=== PATIENT | female | born 1960 | race American Indian/Alaskan Native ===

== ENCOUNTER 2018-03-22 11:38 | Day surgery (SDC) | payer OTHER ==
[2018-03-22] MEDS ORDERED: WATER FOR IRRIG STERILE IR ONE (16:42)
[2018-03-22] MEDS ORDERED: XYLOCAINE MPF 2% ONE (17:00)
[2018-03-22] MEDS ORDERED: NACL 0.9% 1000 ML 1,000 ML ONE (17:13)
[2018-03-22] MEDS ORDERED: NACL 0.9% 1000 ML 1,000 ML IV SCH (19:00)
[2018-03-22] MEDS ORDERED: DIPRIVAN 10 MG/ML IV ONE ×2 (20:14→20:49)
--- NOTE | 2018-03-22 20:39 | Anesthesia Consultation ---
Anesthesia Consult and Med Hx Date of service: 03/22/18 - Airway Anesthetic Teeth Evaluation: Good ROM Head & Neck: Adequate Mental/Hyoid Distance: Adequate Mallampati Class: Class II Intubation Access Assessment: Probably Good - Pulmonary Exam CTA: Yes - Cardiac Exam Cardiac Exam: RRR - Pre-Operative Health Status ASA Pre-Surgery Classification: ASA2 Proposed Anesthetic Plan: MAC - Pulmonary Hx Smoking: No - Cardiovascular System Hx Hypertension: Yes
--- NOTE | 2018-03-22 20:40 | Anesthesia Day of Surgery ---
Anesthesia Day of Surgery - Day of Surgery Patient Examined: Yes Patient H&P Reviewed: Yes Patient is NPO: Yes
--- NOTE | 2018-03-22 21:35 | Operative Report ---
Operative Report Operative Report: Date of procedure: 03/22/2018 Procedure: Colonoscopy with Multiple Biopsies. Attending physician: Homero Hutchins MD Radiation Control Specialist: Homero Hutchins MD Indication: Patient is a 58-year-old female who presents for screening colonoscopy. She also has had occasional anorectal itching and discomfort. This colonoscopy serves to evaluate patient so that treatment may be directed based on the findings. Consent: Informed consent was obtained after advising the patient and family regarding nature of this procedure, its indications, potential benefits as well as possible complications including but not limited to bleeding perforation and adverse reaction to medication, infection as well as other cardiopulmonary complications. An informed written and verbal consent was then obtained after due opportunity was provided for questions and answers. Monitoring: Patient was monitored continuously with pulse oximetry and electrocardiographic recordings as well as blood pressure recordings. Vital signs remained stable throughout this procedure with no untoward events. Preoperative assessment: Patient was assessed immediately prior to this procedure for capacity to tolerate monitored anesthesia care and moderate sedation as well as general anesthesia. Patient's ASA classification is 2, Mallampati class is 2, Hyomental distance is 3. Instrument: [employer] video colonoscope Medications: Propofol given intravenously in divided doses. For details please refer to anesthesia records. Description of procedure: Patient was placed in the left lateral decubitus position after achieving sedation, a digital rectal examination was performed following which the colonoscope was introduced into the anal verge and advanced to the cecum which was identified by the cecal valve, the appendiceal orifice, as well as by the cecal strap and direct transillumination. The colonoscope was subsequently withdrawn with careful inspection of all mucosal surfaces. Patient tolerated this procedure well and was subsequently taken to the recovery room. The following findings were noted. Findings: Patient had 3 diminutive flat polyps in the rectum close to the anal verge which were removed by cold biopsies. In descending area, patient had mucosal edema, erythema and multiple micro-ulcerations with hemorrhagic- appearing mucosa. These changes suggest some underlying proctitis. Several cold biopsies were obtained from this area for histopathologic review . The sigmoid colon was normal. In the descending colon, patient had similar changes however appeared to have densely adherent white patches in this area as well. Biopsies were again obtained for histopathology review. The rest of the colon to the cecum was normal. Patient had internal hemorrhoids seen on the retroflex examination in the mL verge. Impression: Multiple diminutive rectal polyps status post cold biopsy polypectomy . 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 Status post biopsies. Mucosal changes in the 80s in the descending colon suggestive of underlying colitis status post cold biopsies as well. Internal hemorrhoids. Plan: Follow pathology report. High-fiber diet. Direct additional treatment based on the pathology report. Repeat colonoscopy in 5 years, for colorectal cancer screening.
--- NOTE | 2018-03-22 21:36 | Discharge Summary ---
Short Stay Discharge Plan Activity: advance as tolerated Weight Bearing Status: Weight Bear as Tolerated Diet: regular Additional Instructions: Post Sedation D/C Instructions When you return home you may resume your regular diet unless otherwise directed. -Go directly home from the hospital and rest quietly. You may resume normal activities tomorrow. -Do NOT drive, return to work, operate any machinery or make any important personal or business decisions today. -Do NOT drink any alcohol or take nerve or sleeping drugs. They add to the effects of the medicine still present in your body. Follow up with: KHANH MAXWELL NP-C [Primary Care Provider] - 7 Days
[2018-03-22 22:16] VITALS: BP 110/63
== END 2018-03-22 11:39 | disposition home or self-care (01) ==
LOC: GIO 11:38
PROVIDERS: ATTEND Internal Medicine Gastroenterology
DX: Z12.11 Encounter for screening for malignant neoplasm of colon (principal); K52.9 Noninfective gastroenteritis and colitis, unspecified; K63.5 Polyp of colon; K64.8 Other hemorrhoids; I10 Essential (primary) hypertension
CPT/HCPCS: 45380; 88305; J2704; J7030